=== PATIENT | female | born 1970 | race African-American/Black ===

== ENCOUNTER 2016-09-06 06:41 | Emergency (ER) | payer BC ==
[~2016-09-06] VITALS: Ht 162.6 cm; Wt 129.0 kg
[2016-09-06] MEDS ORDERED: PREDNISONE20 MG PO (07:34)
[2016-09-06] MEDS ORDERED: LIDODERM 5% P1 PATCH TD (07:34)
[2016-09-06] MEDS ORDERED: NAPROXEN500 MG PO (07:34)
[2016-09-06 08:38] VITALS: BP 123/87
== END 2016-09-06 09:07 | disposition home or self-care (01) ==
LOC: EME 06:41
DX: M54.32 Sciatica, left side (principal); E11.9 Type 2 diabetes mellitus without complications; I10 Essential (primary) hypertension; E78.00 Pure hypercholesterolemia, unspecified
CPT/HCPCS: 99281; 99284; J1885; J3010; J7512

== ENCOUNTER 2016-11-15 08:28 | Day surgery (SDC) | payer BC ==
[~2016-11-15] VITALS: Ht 162.6 cm; Wt 128.1 kg
[~2016-11-15 08:28] MED LIST: JANUMET 50/11 TABLET PO; LIDODERM 5% P1 PATCH TD; LIPITOR80 MG PO; NAPROXEN500 MG PO; PREDNISONE20 MG PO; TRIBENZOR 40-51 EAC5 PO
[2016-11-15 08:47] VITALS: BP 161/86
[2016-11-15 09:07] LABS: POINT-OF-CARE METER ID UU13113694
[2016-11-15 12:00] LABS: POINT-OF-CARE METER ID UU13113675
[2016-11-15 12:43] VITALS: BP 149/79
[2016-11-15 13:30] VITALS: BP 128/80
== END 2016-11-15 13:37 | disposition home or self-care (01) ==
LOC: SDC 08:28
PROVIDERS: Obstetrics & Gynecology
DX: N84.1 Polyp of cervix uteri (principal); N92.0 Excessive and frequent menstruation with regular cycle; N94.6 Dysmenorrhea, unspecified; I10 Essential (primary) hypertension; E11.9 Type 2 diabetes mellitus without complications; Z87.891 Personal history of nicotine dependence; Z83.3 Family history of diabetes mellitus; Z82.49 Family history of ischemic heart disease and other diseases of the circulatory system
CPT/HCPCS: 82948; 88305; J0330; J0690; J1885; J2250; J2405; J3010